=== PATIENT | female | born 1985 | race Hispanic/Latino ===

== ENCOUNTER 2018-03-24 02:43 | Inpatient (IN) | payer OTHER ==
[~2018-03-24] VITALS: Ht 162.6 cm; Wt 95.7 kg
[2018-03-24 03:14] LABS: APPEARANCE,URINE Cloudy (CLEAR); BILIRUBIN,URINE Negative (NEGATIVE); COLOR,URINE Yellow (YELLOW); GLUCOSE, URINE (UA) Negative (NEGATIVE); KETONES,URINE Negative (NEGATIVE); LEUKOCYTE ESTERASE ,URINE Small (NEGATIVE); NITRATE,URINE Negative (NEGATIVE); OCCULT BLOOD,URINE Large (NEGATIVE); PH,URINE 6.5 (5.0-8.0); PROTEIN,URINE Negative (NEGATIVE)
[2018-03-24 03:28] LABS: AMORPHOUS SEDIMENT,UR Few /LPF (None Seen); BACTERIA,URINE Few /HPF (None Seen); MUCUS,URINE Moderate LPF (None Seen); SQUAMOUS EPITHELIAL CELL,UR Moderate /HPF (0-2)
[2018-03-24] MEDS ORDERED: ROPIVACAINE 0.2%200ML EPIDURAL 200 ML EP SCH (03:30)
[2018-03-24] MEDS ORDERED: LACTATED RINGERS 500 ML 500 ML IV PRN (03:30)
[2018-03-24] MEDS ORDERED: EPHEDRINE SULFATE 50 MG/ML AMPULE IVP PRN (03:30)
[2018-03-24] MEDS ORDERED: NALOXONE HCL 0.4 MG/1 ML ML IV PRN (03:30)
[2018-03-24 03:40] LABS: HEMATOCRIT 30.8 % (36-48); MEAN CORPUSCULAR HEMOGLOBIN 27.5 pg (27.0-33.0); MEAN CORPUSCULAR HGB CONC 33.2 g/dL (32.0-36.0); PLATELET COUNT (AUTO) 397 K/uL (130-400); RED BLOOD CELL COUNT(AUTO) 3.71 MIL/uL (4.00-5.50); RED CELL DISTRIBUTION WIDTH 15.7 % (11.0-15.5)
[2018-03-24] MEDS ORDERED: PREN-196 PO (03:42)
[2018-03-24 03:44] VITALS: BP 118/82
[2018-03-24] MEDS: LACTATED RINGERS 1000ML 1,000 ML IV PRN (04:06)
[2018-03-24] MEDS ORDERED: LACTATED RINGERS 1000ML 1,000 ML IV ONE ×2 (04:28→09:56)
[2018-03-24] MEDS ORDERED: OXYTOCIN 10 USP UNITS/ML ONE ×2 (04:29→09:56)
[2018-03-24] MEDS ORDERED: WITCH HAZEL 1 PAD TP PRN (09:15)
[2018-03-24] MEDS ORDERED: BENZOCAINE/LANOLIN/ALOE VERA 60 ML AEROSOL TP PRN (09:15)
[2018-03-24] MEDS ORDERED: ACETAMINOPHEN-CODEINE 300/30MG TAB PO PRN (09:15)
[2018-03-24] MEDS ORDERED: MEASLES/MUMPS/RUBELLA VACCINE, LIVE 0.5 ML/VIAL SQ PRN (09:15)
[2018-03-24] MEDS ORDERED: LANOLIN 30GM OINTMENT TP PRN (09:15)
[2018-03-24] MEDS ORDERED: DIPH,PERTUSS(ACELL),TET VAC/PF 0.5 ML VIAL IM PRN (09:15)
[2018-03-24 10:59] VITALS: BP 129/73
[2018-03-24] MEDS: IBUPROFEN 800 MG TAB PO PRN ×2 (11:12→19:40)
[2018-03-24 15:39] VITALS: BP 121/68
[2018-03-24] MEDS ORDERED: WATER FOR INJECTION,STERILE 5 ML VIAL ONE (17:41)
[2018-03-24 20:24] VITALS: BP 116/60
[2018-03-24] MEDS: DOCUSATE SODIUM 100 MG CAP PO SCH (22:37)
[2018-03-24 23:39] VITALS: BP 127/77
[2018-03-25 03:14] VITALS: BP 105/51
[2018-03-25 03:17] VITALS: BP 112/74
[2018-03-25 08:30] VITALS: BP 129/80
[2018-03-25 09:21] LABS: HEPATITIS Bs ANTIGEN SCREEN P Negative (Negative)
[2018-03-25] MEDS: DOCUSATE SODIUM 100 MG CAP PO SCH (10:15)
[2018-03-25] MEDS: IBUPROFEN 800 MG TAB PO PRN (10:16)
[2018-03-25 11:16] VITALS: BP 122/77
== END 2018-03-25 14:20 | disposition home or self-care (01) | DRG 775 ==
LOC: EDH 02:43 → LDH 02:44 → OBSVTOIN 03:26 → WSH 10:53
PROC: 10E0XZZ Delivery of Products of Conception, External Approach (ICD-10-PCS; principal; 2018-03-24)
PROC: 3E0R3BZ Introduction of Anesthetic Agent into Spinal Canal, Percutaneous Approach (ICD-10-PCS; 2018-03-24)
PROC: 00HU33Z Insertion of Infusion Device into Spinal Canal, Percutaneous Approach (ICD-10-PCS; 2018-03-24)
PROC: 0HQ9XZZ Repair Perineum Skin, External Approach (ICD-10-PCS; 2018-03-24)
PROC: 3E0234Z Introduction of Serum, Toxoid and Vaccine into Muscle, Percutaneous Approach (ICD-10-PCS; 2018-03-24)
DX: O90.81 Anemia of the puerperium (principal); D50.9 Iron deficiency anemia, unspecified; O70.0 First degree perineal laceration during delivery; Z37.0 Single live birth; Z3A.39 39 weeks gestation of pregnancy; Z23 Encounter for immunization
CPT/HCPCS: 36415; 81001; 85027; 86592; 86850; 86900; 86901; 87340; 90707; 90715; A4314; J2590; J7120